=== PATIENT | female | born 1980 | race Caucasian/White ===

== ENCOUNTER 2016-03-30 13:08 | Emergency (ER) | payer OTHER ==
[~2016-03-30] VITALS: Ht 157.5 cm; Wt 79.2 kg
[~2016-03-30 13:08] MED LIST: ATORVASTATIN CA20 MG PO; CYCLOBENZAPRINE5 MG PO; FLEXERIL5 MG PO; HYDROCHLOROTHIA25 MG PO; KLONOPIN0.5 M1 PO; LIPITOR20 MG PO; LISINOPRIL20 MG PO; METOPROLOL SUC100 MG PO; PERCOCET 5/31 TABLET PO; POTASSIUM CITR15 MEQ PO; TAMSULOSIN HCL0.4 MG PO; TOPROL XL100 MG PO; ZESTRIL20 MG PO
[2016-03-30 13:45] LABS: HEMATOCRIT 40.5 % (36.0-46.0); MCH 28.6 PG (29.0-34.0); MCHC 34.1 G/DL (30.0-36.0); MEAN PLAT.VOLUME 9.9 uM^3 (9.5-12.4); PLATELET COUNT 233 K/uL (156-360); RBC DIS.WIDTH-CV 13.8 % (11.8-14.6); RED BLOOD COUNT 4.82 M/uL (3.80-5.20); WHITE BLOOD COUNT 9.9 K/uL (4.1-10.2)
[2016-03-30 13:54] LABS: CHLORIDE 103 mEq/L (99-109); POTASSIUM 3.3 mEq/L (3.7-5.4); SODIUM 139 mEq/L (136-147)
[2016-03-30 13:55] LABS: GLUCOSE 116 mg/dL (70-99)
[2016-03-30 13:57] LABS: ANION GAP 9 MEQ/L (2-14)
[2016-03-30 13:59] LABS: GFR ESTIMATE (CALCULATED) > 59 mL/min/
[2016-03-30 14:00] LABS: UREA NITROGEN (BUN) 9 mg/dL (9-23)
[2016-03-30 14:11] LABS: ADD MIUA? YES; BILIRUBIN NEGATIVE; BLOOD MODERATE; COLOR STRAW ((YELLOW)); GLUCOSE (STRIP) NEGATIVE; KETONES NEGATIVE; LEUKOCYTES NEGATIVE; NITRITE NEGATIVE; PROTEIN (STRIP) NEGATIVE; SPECIFIC GRAVITY 1.004 (1.000-1.030); UROBILINOGEN 0.2 MG/DL (0.2-1.0)
[2016-03-30 14:30] LABS: BACTERIA 3+ /HPF; EPITHELIAL CELLS 1+ /HPF; MUCUS TRACE /LPF; RED BLOOD CELLS 0-5 /HPF (0-5); UCUL ADDED? NO; WHITE BLOOD CELLS 0-5 /HPF (0-5)
[2016-03-30] MEDS ORDERED: OXAYDO7.5 MG PO (15:02)
[2016-03-30 16:49] VITALS: BP 157/85
== END 2016-03-30 16:50 | disposition home or self-care (01) ==
LOC: EME 13:08 → RME 13:08
DX: R10.32 Left lower quadrant pain (principal); E87.6 Hypokalemia; Z87.442 Personal history of urinary calculi; J45.909 Unspecified asthma, uncomplicated
CPT/HCPCS: 74176; 80048; 81003; 85027; 87086; 99281; 99284; J3010